=== PATIENT | female | born 1960 | race Two or more races ===

== ENCOUNTER 2024-04-04 09:23 | Emergency (ER) | payer OTHER ==
[~2024-04-04] VITALS: Ht 152.4 cm; Wt 74.8 kg
[2024-04-04] MEDS ORDERED: ZESTRIL10 M1 PO (09:47)
[2024-04-04] MEDS ORDERED: KETOROLAC TROMETHAMINE 60 MG VIAL IM ONE (10:45)
[2024-04-04] MEDS ORDERED: KETO10TA2 PO (11:32)
== END 2024-04-04 12:32 | disposition home or self-care (01) ==
LOC: ER 09:24
DX: S93.402A Sprain of unspecified ligament of left ankle, initial encounter (principal); S80.02XA Contusion of left knee, initial encounter; S80.01XA Contusion of right knee, initial encounter; W19.XXXA Unspecified fall, initial encounter; Y93.89 Activity, other specified; Y92.89 Other specified places as the place of occurrence of the external cause; Y99.9 Unspecified external cause status